=== PATIENT | male | born 1960 | race Caucasian/White ===

== ENCOUNTER 2018-08-21 16:13 | Emergency (ER) | payer MEDICAID ==
[~2018-08-21] VITALS: Ht 177.8 cm; Wt 95.3 kg
--- NOTE | 2018-08-21 16:33 | NUR ---
DR VAZQUEZ AT BEDSIDE FOR EVAL....
[2018-08-21] MEDS ORDERED: IBUPROFEN 600 MG TABLET PO ONE (16:45)
[2018-08-21] MEDS ORDERED: IBUPROFEN 600 MG TABLET ONE (16:46)
--- NOTE | 2018-08-21 17:55 | NUR ---
PATIENT STATES PAIN IS DIMINISHING. KNEE IMMOBILZER PLACED BY LILA PEACOCK...
--- NOTE | 2018-08-21 18:17 | NUR ---
DC AND FOLLOW UP INSTRUCTIONS GIVEN AND EXPLAINED TO PATIENT WHO STATES HE UNDERSTANDS ALL INSTRUCTIONS.
== END 2018-08-21 18:17 | disposition home or self-care (01) ==
LOC: ER 16:15
DX: S80.01XA Contusion of right knee, initial encounter (principal); M23.92 Unspecified internal derangement of left knee; J45.909 Unspecified asthma, uncomplicated; W10.9XXA Fall (on) (from) unspecified stairs and steps, initial encounter; Y93.89 Activity, other specified; Y92.89 Other specified places as the place of occurrence of the external cause; Y99.8 Other external cause status
CPT/HCPCS: A4663